=== PATIENT | female | born 1990 | race Caucasian/White ===

== ENCOUNTER 2016-10-20 11:24 | Emergency (ER) | payer OTHER ==
[~2016-10-20] VITALS: Ht 162.6 cm; Wt 60.0 kg
[2016-10-20 11:28] VITALS: Ht 162.6 cm; Wt 60.0 kg
[2016-10-20 12:55] LABS: ADD UMIC NO; URINE BILIRUBIN (Dip) NEGATIVE (NEGATIVE); URINE BLOOD (Dip) NEGATIVE (NEGATIVE); URINE COLOR LT. YELLOW (YELLOW); URINE GLUCOSE (Dip) NEGATIVE (NEGATIVE); URINE KETONES (Dip) NEGATIVE (NEGATIVE); URINE LEUKOCYTE ESTERASE (Dip) NEGATIVE (NEGATIVE); URINE NITRITE (Dip) NEGATIVE (NEGATIVE); URINE TOTAL PROTEIN (Dip) NEGATIVE (NEGATIVE); URINE UROBILINOGEN (Dip) 0.2 E.U./dL (0.1-1.0)
[2016-10-20 12:59] LABS: BASOPHILS % 0.5 % (0.0-2.0); EOSINOPHILS # 0.1 10^3/ul (0.0-0.5); EOSINOPHILS % 0.7 % (0.0-7.0); HEMATOCRIT 41.3 % (37.0-47.0); HEMOGLOBIN 14.1 g/dl (12.0-16.0); LYMPHOCYTES # 2.1 10^3/ul (0.8-2.9); LYMPHOCYTES % 23.2 % (15.0-51.0); MEAN CORPUSCULAR HEMOGLOBIN 29.8 pg (29.0-33.0); MEAN CORPUSCULAR VOLUME 87.5 fl (82.0-101.0); MONOCYTE # 0.7 10^3/ul (0.3-0.9); MONOCYTES % 7.9 % (0.0-11.0); NEUTROPHIL # 6.2 10^3/ul (1.6-7.5); NEUTROPHILS % 67.7 % (39.0-77.0); PLATELET COUNT 187 10^3/UL (140-440); RED BLOOD COUNT 4.72 10^6/ul (4.20-5.40); RED CELL DISTRIBUTION WIDTH 13.3 % (11.5-14.5); UNCORRECTED WBC 9.1 10^3/ul (4.8-10.8); WHITE BLOOD COUNT 9.1 10^3/ul (4.8-10.8)
[2016-10-20 13:09] LABS: CONDITION 1
--- NOTE | 2016-10-20 13:15 | RADRPT ---
AMENDMENT: 10/20/2016 3:01:35 PM Thad Whitfield Md IUD seen in an abnormal location. The IUD appears to be transverse in orientation within the lower uterine segment and or cervix region. In addition, the IUD appears to be perforated into the myometr ium of the uterus. Surgical consultation is advised. PROCEDURE: US OB. CLINICAL INDICATION: Vaginal bleeding in a female. TECHNIQUE: Transabdominal and transvaginal views of the pelvis are available for review. COMPARISON: No. FINDINGS: A gestational sac is identified measuring 1.1 x 1 foot fibers 0.8 cm. The sac diameter is 1.2 cm wh ich calculates out to 5 weeks 5 days. A yolk sac is noted. No ovarian or adnexal mass lesion is seen. The ovaries are normal and abnormal blood flow. There is no free fluid. IMPRESSION: 1. Single gestational sac is identified of 5 weeks 5 days. Since no pole is identified, follo w-up imaging is recommended to ensure that this is a viable . When no IUP is demonstrated, correlation with serial beta HCG is recommended. With a quantitative beta HCG >2000, the differential diagnosis includes spontaneous or ecto pic . Therefore, clinical follow-up is recommended including correlation with serial quant itative beta HCG levels and repeat sonogram with rising levels and/or/or localized or persistent adonay n. With quantitative beta HCG < 2000, the differential diagnosis includes early normal IVP or spontaneo us or ectopic . Therefore, clinical follow-up is recommended including correlatio n with serial quantitative beta HCG levels and arising levels and / or persistent pain. 2. No abnormal adnexal mass or free fluid is noted. RPTAT:AAJJ .Thad Whitfield MD, Date Time Electronically viewed and signed by .Thad Whitfield MD, MD on 10/20/2016 15:01 .B/
--- NOTE | 2016-10-20 14:38 | ERD ---
ER Documentation Chief Complaint Date/Time DATE: 10/20/16 TIME: 14:35 Chief Complaint pelvic pain,5 weeks (KOBY DAY PA-C) HPI Patient is a 26-year-old female who is who presents to the ED with bilateral pelvic pain. She states that her last normal menstrual period was . Denies vaginal bleeding. Patient states that she does not want her and is planning on having an . She states that her second child had problems when she was born and does not want this . She states that she has an IUD and was sent here from her primary care for removal of IUD and ultrasound. She states she wants the pill for but has to remove the IUD before her pcp can give her this. Denies fever or chills. Denies urinary symptoms. Denies abdominal pain, nausea, vomiting or diarrhea. Denies leg pain or swelling. Denies chest pain, cough, shortness of breath or difficulty breathing. No other complaints. Denies history of STDS. (KOBY DAY PA-C) ROS All systems reviewed and are negative except as per history of present illness. (KOBY DAY PA-C) Medications Home Meds Active Scripts Doxycycline Hyclate* (Doxycycline Hyclate*) 100 Mg Tablet., 100 MG PO BID for 5 Days, #10 TAB Prov:MINDY WALL MD 10/20/16 Allergies Allergies: Coded Allergies: No Known Allergy (Verified , 10/20/16) PMhx/Soc Medical and Surgical Hx: pt denies Medical Hx, pt denies Surgical Hx History of Surgery: No Anesthesia Reaction: Yes (csection) Hx Neurological Disorder: No Hx Respiratory Disorders: No Hx Cardiac Disorders: No Hx Psychiatric Problems: No Hx Miscellaneous Medical Probl: No Hx Alcohol Use: Yes (socially) Hx Substance Use: No Hx Tobacco Use: No Smoking Status: Never smoker (KOBY DAY PA-C) Physical Exam Vitals Vital Signs Date Time Temp Pulse Resp B/P Pulse Ox O2 Delivery O2 Flow Rate FiO2 10/20/16 18:06 98.2 72 18 118/65 98 Room Air 10/20/16 11:28 98.2 95 18 131/65 98 (MINDY WALL MD) Physical Exam GENERAL: Well-developed, well-nourished female. Appears in no acute distress. LUNG: Clear to auscultation bilaterally. No rhonchi, wheezing, rales or coarse breath sounds. HEART: Regular rate and rhythm. No murmurs, rubs or gallops. ABDOMEN: No scars, ecchymosis or rashes noted. Soft, nontender, and nondistended. Positive bowel sounds in all four quadrants. No rebound tenderness , no guarding. (-) McBurneys point tenderness. No CVA tenderness. BACK: No midline tenderness. Extremities: Equal pulses bilaterally. No peripheral clubbing, cyanosis or edema. No unilateral leg swelling. NEUROLOGIC: Alert and oriented. Moving all four extremities. 5/5 strength in all extremities. Normal speech. Steady gait. SKIN: Normal color. Warm and dry. No rashes or lesions. Capillary refill < 2 seconds (KOBY DAY PA-C) Result Diagram: 10/20/16 1235 Results 24 hrs Laboratory Tests Test 10/20/16 12:35 Basophils # 0.010^3/ul Basophils % 0.5% Beta HCG, Quantitative 86154.0mIU/ml Blood Morphology Comment Eosinophils # 0.110^3/ul Eosinophils % 0.7% Hematocrit 41.3% Hemoglobin 14.1g/dl Lymphocytes # 2.110^3/ul Lymphocytes % 23.2% Mean Corpuscular Hemoglobin 29.8pg Mean Corpuscular Hemoglobin Concent 34.0g/dl Mean Corpuscular Volume 87.5fl Mean Platelet Volume 11.0fl Monocytes # 0.710^3/ul Monocytes % 7.9% Neutrophils # 6.210^3/ul Neutrophils % 67.7% Nucleated Red Blood Cells # 0.010^3/ul Nucleated Red Blood Cells % 0.0/100WBC Platelet Count 23366^3/UL Red Blood Count 4.7210^6/ul Red Cell Distribution Width 13.3% Urine Bilirubin NEGATIVE Urine Clarity CLEAR Urine Color LT. YELLOW Urine Glucose NEGATIVE% Urine Hemoglobin NEGATIVE Urine Ketones NEGATIVE Urine Leukocyte Esterase NEGATIVE Urine Nitrite NEGATIVE Urine Specific [place] 1.020 Urine Total Protein NEGATIVE Urine Urobilinogen 0.2 E.U./dL Urine pH 7.0 White Blood Count 9.110^3/ul Current Medications Medications (Trade) Dose Ordered Sig/Teresa Route PRN Reason Start Time Stop Time Status Last Admin Dose Admin Doxycycline Hyclate (Vibramycin) 100 mg BID PO 10/20/16 21:00 10/20/16 20:37 (MINDY WALL MD) Procedures/MDM ER COURSE: I kept the patient and/or family informed of laboratory and diagnostic imaging results throughout the emergency room course. [place] [id number] Radiology Main Line: [phone] DIAGNOSTIC IMAGING REPORT Patient: NARESH STACY : 1990 Age: 26 Sex: F MR #: [id number] DOS: 10/20/16 1222 Ordering MD: KOBY DAY PA-C Location: [facility] Room/Bed: AMENDMENT: 10/20/2016 3:01:35 PM Thad Whitfield Md IUD seen in an abnormal location. The IUD appears to be transverse in orientation within the lower uterine segment and or cervix region. In addition, the IUD appears to be perforated into the myometrium of the uterus. Surgical consultation is advised. PROCEDURE: US OB. CLINICAL INDICATION: Vaginal bleeding in a female. TECHNIQUE: Transabdominal and transvaginal views of the pelvis are available for review. COMPARISON: No. FINDINGS: A gestational sac is identified measuring 1.1 x 1 foot fibers 0.8 cm. The sac diameter is 1.2 cm which calculates out to 5 weeks 5 days. A yolk sac is noted. No ovarian or adnexal mass lesion is seen. The ovaries are normal and abnormal blood flow. There is no free fluid. IMPRESSION: 1. Single gestational sac is identified of 5 weeks 5 days. Since no pole is identified, follow-up imaging is recommended to ensure that this is a viable . When no IUP is demonstrated, correlation with serial beta HCG is recommended. With a quantitative beta HCG >2000, the differential diagnosis includes spontaneous or ectopic . Therefore, clinical follow-up is recommended including correlation with serial quantitative beta HCG levels and repeat sonogram with rising levels and/or/or localized or persistent pain. With quantitative beta HCG < 2000, the differential diagnosis includes early normal IVP or spontaneous or ectopic . Therefore, clinical follow-up is recommended including correlation with serial quantitative beta HCG levels and arising levels and / or persistent pain. 2. No abnormal adnexal mass or free fluid is noted. RPTAT:AAJJ .Thad Whitfield MD, Date Time Electronically viewed and signed by .Thad Whitfield MD, MD on 10/20/2016 15:01 .B/ CC: KOBY DAY PA-C LAB INTERPRETATION: CBC showed no evidence of systemic infection or severe anemia. . UA showed no evidence of leukocytes, nitrites or hematuria. Beta hC.0 Rh: A+ MEDICAL DECISION MAKING: This is a 26-year-old female who is who presents with pelvic pain and removal of IUD. Vital signs were reviewed. Patient is afebrile. Patient is not hypoxic. Patient is not toxic or ill-appearing. Dr. Pop was consulted who came to examine patient at bedside and to remove IUD. Patient will be admitted for IUD removal and D/C. Consent forms were signed by patient and provider. Dr. Pop will be the admitting doctor. Patient is stable at transfer. (KOBY DAY PA-C) Initially the PA saw the patient and consulted gynecology. Gynecology wanted to take the patient to the operating room for removal of her IUD. However her insurance did not believe this was in the emergency and they did not approve admission. They also did not approve transferred to [facility], where the patient's insurance is capitated. Our farm management teacher,Dr. Hardin, stated that this procedure needs to be done within 1 week. She also recommended doxycycline for 5 days. I discussed this with the patient and she is agreeable to the plan. She will follow up with her farm management teacher within the next day. She will return for any worsening symptoms. (MINDY WALL MD) Departure Diagnosis: Primary Impression: Threatened Additional Impression: Encounter for IUD removal Condition: Stable Patient Instructions: Possible Miscarriage (Threatened ) Referrals: NO PRIMARY,CARE PHYSICIAN Additional Instructions: Call your primary care doctor TOMORROW for an appointment during the next 1-2 days.See the doctor sooner or return here if your condition worsens before your appointment time. KOBY DAY PA-C Oct 20, 2016 14:38 MINDY WALL MD Oct 20, 2016 20:54
--- NOTE | 2016-10-20 20:22 | PD.PPDC ---
[employer] Discharge Instruction Provider Information Physician Information Lázaro Lundberg Diagnosis Final Diagnosis: Retained and misplaced IUD with early Condition Patient Condition: Good Diet Diet: Resume Regular Diet Activity/Restrictions Activity: Normal Activity Restrictions: No Exercising Nothing in the Vagina No [place] No Tampons, douche Follow-up Follow-up with Physician: 2, Day/Days Return to clinic for INSURANCE CLAIMS REPRESENTATIVE Instructions: Fever greater than 101 Chills Worsening abdominal pain Excessive Vaginal Bleeding More than 2 pads per hour Unable to tolerate diet LÁZARO LUNDBERG MD Oct 20, 2016 20:22
[2016-10-20] MEDS ORDERED: DOXY100T20 PO (20:52)
--- NOTE | 2016-10-20 20:55 | CONS ---
Date/Time of Note Date/Time of Note DATE: 10/20/16 TIME: 20:23 Assessment/Plan Assessment/Plan Chief Complaint/Hosp Course Retained IUD Early IUP undesired Attempted to remove the IUD at ED , could not been able to do due to lodging and entrapment in the lower uterine segment/ cervix. Patient desires termination. Discussed about increased risk for infection, SAB and PTL with retained IUD and . Patient strongly desires termination Consider removal in the OR as well as D&C. Risks for the procedure including risk for infection. uterine perforation, inability to remove or breaking of IUD , risk for laparatomy and risk for bleeding and blood transfusion discussed in detail Patient consented for removal in OR. how ever I was called by ED charge nurse that the patient has been capped with [employer] and due to her insurnace can not proeceed with the procedure at this facility. Requested by her insurance to be referred to her [facility] for termination and removal of IUD Recommended to take antibiotics due to recent instrumention as well as retained IUD I have discussed the risk of teratogenicity with this medication, if patient plans to continue Strongly desires termination SAB precaution given Advised to RT ED in case of fever, chills, abnormal vaginal discharge or any other concerns. Patient verbalized understanding Problems: Consultation Date/Type/Reason Admit Date/Time Date of Consultation: Oct 20, 2016 Type of Consultation: [employer] Reason for Consultation Lower abdominal pain, early and retained and displaced IUD Hx of Present Illness 26 years old female with early new episode of and lower abdominal pain, was seen today at her PCP office due to pain and postiive test. She was noted to be with IUD ( paraGard). [facility]. Patient has been using ParaGard IUD for the past 8 years. used to have regular cycles with IUD. missed her recent cycle. had a positive test. was unplanned and undesired and requests termination. She had a pelivc ultrasound at ED that showed evidence of misplaced IUD and entrapment in the lower uterine segment / cervix with a 5 + weeks gestational sac without echo and presence of Yolk sac. there is no free fluid in pelvis or adnexal mass. Patient denies any fever, chills, abnormal vaginal bleeding or discharge. Constitutional: no complaints Eyes: no complaints ENT: no complaints Respiratory: no complaints Cardiovascular: no complaints Gastrointestinal: no complaints Genitourinary: no complaints Musculoskeletal: no complaints Skin: no complaints Neurologic: no complaints Endocrine: no complaints Lymphatic: no complaints Psychological: no complaints Immunologic: no complaints Past Medical History Medical History: no pertinent history Past Surgical History History of section x 1 Family History Significant Family History: no pertinent family hx Social History Alcohol Use: occasionally Smoking Status: Never smoker Drug Use: none Other Social History works in [employer] OBGYN History: x 1 section x 1 for intestinal abnormality ? gastroschisis? , had surgery immediately after and at 2 years of age. Denies any prior history of abnormal pap or ovarian cyat or fibroid Cycles were regular. every 28 days with normal flow Denies any prior history of STD or PID Using IUD paraGard placed about 8 years ago after her last delivery. New episode of . 5 weeks and 1 day by LMP Exam/Review of Systems Vital Signs Vitals Vital Signs Date Time Temp Pulse Resp B/P Pulse Ox O2 Delivery O2 Flow Rate FiO2 10/20/16 18:06 98.2 72 18 118/65 98 Room Air Exam Constitutional: alert, oriented, well developed Psych: nl mood/affect, no complaints Head: atraumatic, normocephalic Eyes: EOMI, nl conjunctiva, nl lids ENMT: nl external ears & nose, nl lips & teeth, nl nasal mucosa & septum Neck: jvd, non-tender, supple Respiratory: clear to auscultation, normal air movement Cardiovascular: nl pulses, regular rate and rhythm Gastrointestinal: nl liver, spleen, soft, tender (mildly in both lower abdomen. no rebound tenderness, no guarding, no rigidity. ) Genitourinary - Female: nl adnexae, other (SSE: cervix looks normal. IUD string seen at the external cervical os about 1 cm from the os. No abnormal vaginal discharge noted. No fullness or tenderness in adnexa. No uterine tenderness, After discussion about the risks and benefits regarding removal of IUD including risk for SAB, and risk of infection in case of retained IUD. Patient requested removal. [place] desires termination. Attempted to remove the IUD after garsping of the string with bandage forceps, difficutly of removing noted with resistence due to wedged IUD, manuela in the cervix area. after attempting for removal. the strings came off. IUD palpable in the cervix. could not been able to remove IUD) Musculoskeletal: nl extremities to inspection, nl gait and stance Extremities: normal pulses Neurological: TRADER FIXED INCOME II-XII intact, nl mental status, nl speech, nl strength Skin: nl turgor, rash or lesions Results Result Diagram: 10/20/16 1235 Results 24 hrs Laboratory Tests Test 10/20/16 12:35 Basophils # 0.0 Basophils % 0.5 Beta HCG, Quantitative 31979.0 Blood Morphology Comment Eosinophils # 0.1 Eosinophils % 0.7 Hematocrit 41.3 Hemoglobin 14.1 Lymphocytes # 2.1 Lymphocytes % 23.2 Mean Corpuscular Hemoglobin 29.8 Mean Corpuscular Hemoglobin Concent 34.0 Mean Corpuscular Volume 87.5 Mean Platelet Volume 11.0 H Monocytes # 0.7 Monocytes % 7.9 Neutrophils # 6.2 Neutrophils % 67.7 Nucleated Red Blood Cells # 0.0 Nucleated Red Blood Cells % 0.0 Platelet Count 187 Red Blood Count 4.72 Red Cell Distribution Width 13.3 Urine Bilirubin NEGATIVE Urine Clarity CLEAR Urine Color LT. YELLOW Urine Glucose NEGATIVE Urine Hemoglobin NEGATIVE Urine Ketones NEGATIVE Urine Leukocyte Esterase NEGATIVE Urine Nitrite NEGATIVE Urine Specific [place] 1.020 Urine Total Protein NEGATIVE Urine Urobilinogen 0.2 E.U./dL Urine pH 7.0 White Blood Count 9.1 Medications Medications Current Medications Doxycycline Hyclate (Vibramycin) 100 mg BID PO ; Start 10/20/16 at 21:00; Status UNV Procedures Procedures AMENDMENT: 10/20/2016 3:01:35 PM Thad Whitfield Md IUD seen in an abnormal location. The IUD appears to be transverse in orientation within the lower uterine segment and or cervix region. In addition, the IUD appears to be perforated into the myometrium of the uterus. Surgical consultation is advised. PROCEDURE: US OB. CLINICAL INDICATION: Vaginal bleeding in a female. TECHNIQUE: Transabdominal and transvaginal views of the pelvis are available for review. COMPARISON: No. FINDINGS: A gestational sac is identified measuring 1.1 x 1 foot fibers 0.8 cm. The sac diameter is 1.2 cm which calculates out to 5 weeks 5 days. A yolk sac is noted. No ovarian or adnexal mass lesion is seen. The ovaries are normal and abnormal blood flow. There is no free fluid. IMPRESSION: 1. Single gestational sac is identified of 5 weeks 5 days. Since no pole is identified, follow-up imaging is recommended to ensure that this is a viable . When no IUP is demonstrated, correlation with serial beta HCG is recommended. With a quantitative beta HCG >2000, the differential diagnosis includes spontaneous or ectopic . Therefore, clinical follow-up is recommended including correlation with serial quantitative beta HCG levels and repeat sonogram with rising levels and/or/or localized or persistent pain. With quantitative beta HCG < 2000, the differential diagnosis includes early normal IVP or spontaneous or ectopic . Therefore, clinical follow-up is recommended including correlation with serial quantitative beta HCG levels and arising levels and / or persistent pain. 2. No abnormal adnexal mass or free fluid is noted. RPTAT:AAJJ .Thad Whitfield MD, MD Date Time Electronically viewed and signed by .Thad Whitfield MD, MD on 10/20/2016 15:01 .B/ CC: KOBY DAY PA-C, MARYAM MD Oct 20, 2016 20:33
[2016-10-20] MEDS ORDERED: DOXYCYCLINE 100 MG TAB PO SCH (21:00)
[2016-10-20 21:05] VITALS: BP 107/72; PULSE 70; RESP 18; TEMP 98.3
== END 2016-10-20 21:06 | disposition home or self-care (01) ==
LOC: FTE 11:24 → E/R 21:06
DX: O20.0 Threatened abortion (principal); R10.2 Pelvic and perineal pain; Z30.432 Encounter for removal of intrauterine contraceptive device
CPT/HCPCS: 36415; 76801; 76817; 81003; 84702; 85025; 86900; 86901; Z7502; Z7610

== ENCOUNTER 2016-10-22 10:24 | Inpatient (IN) | payer OTHER ==
[~2016-10-22] VITALS: Wt 69.0 kg
[~2016-10-22 10:24] MED LIST: DOXY100T20 PO
--- NOTE | 2016-10-22 15:21 | ERD ---
ER Documentation Chief Complaint Date/Time DATE: 10/22/16 Chief Complaint Pelvic pain, early , retained and misplaced IUD sent for IUD removal HPI The patient is a 26-year-old female, A0 with new episode of , who presents to the Emergency Department with complaint of pelvic pain, and retained IUD. The patient reports that she has been using the ParaGard IUD for the past 8 years, and missed her most recent menstrual cycle. She was seen in an outpatient clinic, at which time she was noted to have a positive test. Knowing that the patient has an IUD, they attempted removal, but the strings and IUD could not be found, and therefore, on 10/20/2016 the patient was referred to the ED to evaluate for misplaced IUD and removal. The patient states that this was unplanned, is undesired, and she is requesting termination of the . She was evaluated in the ED on 2016, where ultrasound imaging revealed evidence of misplaced IUD with entrapment in the lower uterine segment and/or cervix region with perforation into the myometrium of the uterus, and a single gestational sac of 5 weeks 5 days, though with no pole identified. Beta hCG 21,989. The patient was seen by Dr. Pop, AIRPORT ENGINEER on-call at the time, who determined the patient to have retained and misplaced IUD with early , and planned to admit the patient for removal in the OR as well as D&C. Unfortunately, at the time, due to the patient's insurance status, she could not be admitted at this facility, and the patient was therefore discharged home and advised to follow up with OB/ ECONOMIC HISTORY TEACHER [facility] for termination and IUD removal. The patient called her insurance company yesterday, asking where she was to go, and was advised that she will be given authorization for admission to [facility] for IUD removal and any associated procedures. Therefore, she presents today. She reports continued pelvic pain. Denies new vaginal discharge. Denies fevers, chills, nausea, vomiting, back pain. ROS All systems reviewed and are negative except as per history of present illness. Medications Home Meds Active Scripts Doxycycline Hyclate* (Doxycycline Hyclate*) 100 Mg Tablet., 100 MG PO BID for 5 Days, #10 TAB Prov:MINDY WALL MD 10/20/16 Allergies Allergies: Coded Allergies: No Known Allergy (Verified , 10/20/16) PMhx/Soc History of Surgery: No Anesthesia Reaction: No Hx Neurological Disorder: No Hx Respiratory Disorders: No Hx Cardiac Disorders: No Hx Psychiatric Problems: No Hx Miscellaneous Medical Probl: No Hx Alcohol Use: No Hx Substance Use: No Hx Tobacco Use: No Smoking Status: Never smoker Physical Exam Vitals Vital Signs Date Time Temp Pulse Resp B/P Pulse Ox O2 Delivery O2 Flow Rate FiO2 10/22/16 10:30 98.0 82 18 114/73 99 Physical Exam GENERAL: Well-developed, well-nourished, female, in no acute distress HEENT: Head is normocephalic, atraumatic. No scleral pallor or icterus. Conjunctiva pink. Moist mucous membranes. NECK: Supple. RESPIRATORY: Lungs are clear to auscultation bilaterally. Equal breath sounds. Normal expiratory effort. CARDIOVASCULAR: Regular rate and rhythm. S1 and S2 normal. No murmurs. GASTROINTESTINAL: Abdomen is soft, non-tender, and non-distended. No guarding, no rebound tenderness. Normal bowel sounds. No gross peritonitis. FLANK: No CVA tenderness. BACK: No midline tenderness. EXTREMITIES: No clubbing, cyanosis, or edema. Normal skin perfusion. Moving all extremities. Muscle tone is normal. No focal swelling or erythema. NEUROLOGIC: The patient is alert, awake, and oriented x 3. No focal neurologic deficits. INTEGUMENT: Skin is intact. Warm and dry. PSYCHIATRIC: Cooperative; appropriate. Result Diagram: 10/23/16 1120 10/22/16 1520 Results 24 hrs Laboratory Tests Test 10/22/16 15:20 Activated Partial Thromboplast Time 26.4Sec Anion Gap 17 Basophils # 0.010^3/ul Basophils % 0.4% Beta HCG, Quantitative 48947.0mIU/ml Blood Urea Nitrogen 13mg/dl Calcium Level 8.8mg/dl Carbon Dioxide Level 22mmol/L Chloride Level 104mmol/L Creatinine 0.54mg/dl Eosinophils # 0.110^3/ul Eosinophils % 0.7% Glucose Level 82mg/dl Hematocrit 39.5% Hemoglobin 13.5g/dl INR International Normalized Ratio 0.98 Lymphocytes # 2.210^3/ul Lymphocytes % 26.1% Mean Corpuscular Hemoglobin 29.7pg Mean Corpuscular Hemoglobin Concent 34.2g/dl Mean Corpuscular Volume 86.8fl Mean Platelet Volume 12.2fl Monocytes # 0.510^3/ul Monocytes % 5.5% Neutrophils # 5.610^3/ul Neutrophils % 66.9% Nucleated Red Blood Cells # 0.010^3/ul Nucleated Red Blood Cells % 0.0/100WBC Platelet Count 46359^3/UL Potassium Level 3.8mmol/L Prothrombin Time 13.0Sec Prothrombin Time Ratio 1.0 Red Blood Count 4.5510^6/ul Red Cell Distribution Width 13.0% Sodium Level 139mmol/L Urine Bilirubin NEGATIVE Urine Clarity CLEAR Urine Color LT. YELLOW Urine Glucose NEGATIVE% Urine Hemoglobin NEGATIVE Urine Ketones 15 Urine Leukocyte Esterase NEGATIVE Urine Nitrite NEGATIVE Urine Specific [place] >=1.030 Urine Total Protein NEGATIVE Urine Urobilinogen 0.2 E.U./dL Urine pH 5.5 White Blood Count 8.410^3/ul Procedures/MDM The patient's case was reviewed and discussed with Dr. Jasso, Dr. Walsh, Dr. Bellamy and Dr. Joshi, who agree with the plan of care including labs, treatment and advanced imaging as appropriate. DIAGNOSTIC TESTS AND INTERPRETATION: PROCEDURE: US OB. CLINICAL INDICATION: Pelvic pain, viability TECHNIQUE: Transabdominal and transvaginal views of the pelvis are available for review. COMPARISON: 10/20/2016 FINDINGS: The IUD is again noted to be in a transverse abnormal location in the lower uterine segment. This is not significantly changed. There is a single intrauterine gestation with gestational sac measuring 1.6 cm , corresponding to a gestational age of 6 weeks and 2 days. No pole or yolk sac is yet visualized. The right ovary measures 3.8 x 2.1 cm. A questionable isoechoic mass is seen adjacent to the right ovary, measuring 2.8 x 1.4 cm. The left ovary measures 2.1 x 1.7 x 1.4 cm. There is no free fluid. IMPRESSION: Possible intrauterine with an estimated gestational age of 6 weeks and 2 days, based on ultrasound measurements. No pole or yolk sac is yet visualized. Questionable isoechoic mass adjacent to the right ovary versus normal ovarian tissue. An ectopic cannot be completely excluded. Follow-up ultrasound and HCG levels is recommended. IUD is again noted and abnormal transverse location in the lower uterine segment. .Dutch Lyn MD, MD Date Time Electronically viewed and signed by .Dutch Lyn MD, on 10/22/2016 16: 27 CONSULTATION: Discussed case with Dr. Carvalho, who evaluated the patient bedside. Given high concern for possible ectopic , the patient will be admitted and will go to the OR with Dr. Carvalho. She will be consented for D&C, suction, removal of IUD, laparoscopy, removal of ectopic , possible salpingectomy, possible laparotomy. MEDICAL DECISION MAKING: This is a 26-year-old female, A0, presenting to the Emergency Department with pelvic pain. Patient was initially evaluated 2 days prior, and was noted to have an "early " and " retained and misplaced IUD". Initially, the plan was to admit the patient, to perform IUD retrieval, and D&C, given that this was not a desired . However, due to insurance complications, the patient was discharged home instead and advised to follow up with her own AIRPORT ENGINEER. The patient returned today, by recommendation of her insurance company, as they have provided authorization for admission to this hospital. Upon presentation, the patient continues to experience pelvic pain. She has not had any bleeding, no new vaginal discharge, no flank pain, no dysuria, no hematuria, no urinary frequency /urgency/hesitancy or urinary retention. She had no significant abnormalities noted on physical examination, and was hemodynamically stable. Laboratory analysis and ultrasound imaging were performed. The patient's beta hCG increased to 36,662 over a 48-hour period, from previous beta hCG of 21,989. Ultrasound imaging performed revealed a possible intrauterine with an estimated gestational age of 6 weeks and 2 days, but with no pole or yolk sac visualized. Additionally, there is a questionable isoechoic mass adjacent to the right ovary versus normal ovarian tissue, which is concerning for a possible ectopic . The patient's IUD was once against visualized in abnormal transverse location in the lower uterine segment. The patient's case was discussed with AIRPORT ENGINEER specialist on-call, Dr. Carvalho, who evaluated the patient bedside, and recommends admission. He will take the patient to the OR for D&C, suction, removal of IUD, laparoscopy, removal of ectopic , possible salpingectomy, and possible laparotomy. The patient will be admitted to med/surg in stable condition. Departure Diagnosis: Primary Impression: Retained intrauterine device (IUD) during in first t... Additional Impressions: Ectopic Location of ectopic : unspecified location Intrauterine status: unspecified Qualified Code: O00.90 - Ectopic , unspecified location, unspecified whether intrauterine present Pelvic pain complicating Condition: Stable BRANDON BARNES PA-C Oct 22, 2016 15:19
[2016-10-22 15:27] LABS: ADD SCAN DIFF NO
[2016-10-22 15:30] LABS: BASOPHILS % 0.4 % (0.0-2.0); EOSINOPHILS # 0.1 10^3/ul (0.0-0.5); EOSINOPHILS % 0.7 % (0.0-7.0); HEMATOCRIT 39.5 % (37.0-47.0); HEMOGLOBIN 13.5 g/dl (12.0-16.0); LYMPHOCYTES # 2.2 10^3/ul (0.8-2.9); LYMPHOCYTES % 26.1 % (15.0-51.0); MEAN CORPUSCULAR HEMOGLOBIN 29.7 pg (29.0-33.0); MEAN CORPUSCULAR HGB CONC 34.2 g/dl (32.0-37.0); MEAN CORPUSCULAR VOLUME 86.8 fl (82.0-101.0); MEAN PLATELET VOLUME 12.2 fl (7.4-10.4); MONOCYTE # 0.5 10^3/ul (0.3-0.9); MONOCYTES % 5.5 % (0.0-11.0); NEUTROPHIL # 5.6 10^3/ul (1.6-7.5); NEUTROPHILS % 66.9 % (39.0-77.0); PLATELET COUNT 208 10^3/UL (140-415); RED BLOOD COUNT 4.55 10^6/ul (4.20-5.40); WHITE BLOOD COUNT 8.4 10^3/ul (4.8-10.8)
[2016-10-22 15:34] LABS: INR 0.98
[2016-10-22 15:35] LABS: PARTIAL THROMBOPLASTIN TIME 26.4 Sec (25.0-35.0)
[2016-10-22 15:36] LABS: POTASSIUM 3.8 mmol/L (3.5-5.1)
[2016-10-22 15:38] LABS: ADD UMIC NO; CREATININE 0.54 mg/dl (0.44-1.00); URINE BILIRUBIN (Dip) NEGATIVE (NEGATIVE); URINE BLOOD (Dip) NEGATIVE (NEGATIVE); URINE COLOR LT. YELLOW (YELLOW); URINE GLUCOSE (Dip) NEGATIVE (NEGATIVE); URINE KETONES (Dip) 15 (NEGATIVE); URINE LEUKOCYTE ESTERASE (Dip) NEGATIVE (NEGATIVE); URINE NITRITE (Dip) NEGATIVE (NEGATIVE); URINE TOTAL PROTEIN (Dip) NEGATIVE (NEGATIVE); URINE UROBILINOGEN (Dip) 0.2 E.U./dL (0.1-1.0)
[2016-10-22 15:39] LABS: CALCIUM 8.8 mg/dl (8.4-10.2)
--- NOTE | 2016-10-22 16:27 | RADRPT ---
PROCEDURE: US OB. CLINICAL INDICATION: Pelvic pain, viability TECHNIQUE: Transabdominal and transvaginal views of the pelvis are available for review. COMPARISON: 10/20/2016 FINDINGS: The IUD is again noted to be in a transverse abnormal location in the lower uterine segment. This i s not significantly changed. There is a single intrauterine gestation with gestational sac measuring 1.6 cm, corresponding to a gestational age of 6 weeks and 2 days. No pole or yolk sac is yet visualized. The right ovary measures 3.8 x 2.1 cm. A questionable isoechoic mass is seen adjacent to the right ovary, measuring 2.8 x 1.4 cm. The left ovary measures 2.1 x 1.7 x 1.4 cm. There is no free fluid. RPTAT: AA IMPRESSION: Possible intrauterine with an estimated gestational age of 6 weeks and 2 days, based on ul trasound measurements. No pole or yolk sac is yet visualized. Questionable isoechoic mass adjacent to the right ovary versus normal ovarian tissue. An ectopic pr egnancy cannot be completely excluded. Follow-up ultrasound and HCG levels is recommended. IUD is again noted and abnormal transverse location in the lower uterine segment. .Dutch Lyn MD, MD Date Time Electronically viewed and signed by .Dutch Lyn MD, on 10/22/2016 16:27 .S/
[2016-10-22 17:23] VITALS: TEMP 98.7
[2016-10-22] MEDS ORDERED: BUPIVACAINE 0.25% (MPF) 10 ML 10 ML VIAL ONE (20:48)
[2016-10-22] MEDS ORDERED: PROPOFOL 20 ML ONE (20:52)
[2016-10-22] MEDS ORDERED: LIDOCAINE 2% (SDV) 5 ML INJ ONE (20:52)
[2016-10-22] MEDS ORDERED: SUCCINYLCHOLINE CHLORIDE 100 MG/5 ML SYG IV ONE (20:52)
[2016-10-22] MEDS ORDERED: GLYCOPYRROLATE 0.4 MG INJ ONE ×2 (20:52→21:09)
[2016-10-22] MEDS ORDERED: NEOSTIGMINE 3 MG/3 ML SYRINGE ONE ×2 (20:52→21:09)
[2016-10-22] MEDS ORDERED: ROCURONIUM 50 MG INJ ONE (20:52)
[2016-10-22] MEDS ORDERED: MEPERIDINE 100 MG INJ ONE (20:53)
[2016-10-22] MEDS ORDERED: ONDANSETRON 4 MG INJ IV PRN (21:00)
[2016-10-22] MEDS ORDERED: hydrALAzine 20 MG INJ IV PRN (21:00)
[2016-10-22] MEDS ORDERED: EPHEDrine SULFATE 50 MG/5 ML SYG IV PRN (21:00)
[2016-10-22] MEDS ORDERED: METOCLOPRAMIDE 10 MG INJ IV PRN (21:00)
[2016-10-22] MEDS ORDERED: FENTAnyl 50 MCG/ML VIAL IV PRN ×2 (21:00)
[2016-10-22] MEDS ORDERED: DIPHENHYDRAMINE 50 MG INJ IV PRN (21:00)
[2016-10-22] MEDS ORDERED: LABETALOL HCL 20MG INJ IV PRN (21:00)
[2016-10-22] MEDS ORDERED: HYDROmorphONE (0.2 MG/ML) 10ML SYG IV PRN ×2 (21:00)
[2016-10-22] MEDS ORDERED: MIDAZOLAM 1 MG/ML 2 ML INJ IV PRN (21:00)
[2016-10-22] MEDS ORDERED: morphine (1 MG/ML) 10ML SYRINGE IV PRN ×2 (21:00)
[2016-10-22] MEDS ORDERED: MEPERIDINE 25 MG INJ IV PRN (21:00)
[2016-10-22] MEDS ORDERED: CEFAZOLIN 1 GM INJ ONE (21:08)
[2016-10-22] MEDS ORDERED: METOCLOPRAMIDE 10 MG INJ ONE (21:09)
[2016-10-22] MEDS ORDERED: ONDANSETRON 4 MG INJ ONE (21:09)
[2016-10-22 23:07] VITALS: BP 114/65; PULSE 86; RESP 18
[2016-10-22 23:09] VITALS: BP 107/62; PULSE 88; RESP 18
[2016-10-22 23:14] VITALS: BP 99/58; PULSE 86; RESP 18
[2016-10-22 23:19] VITALS: BP 102/58; PULSE 86; RESP 18
[2016-10-22 23:24] VITALS: BP 100/55; PULSE 82; RESP 18
--- NOTE | 2016-10-23 01:34 | OPR ---
Date/Time of Note Date/Time of Note DATE: 10/23/16 TIME: 01:07 Operative Report Free Text/Dictation 10/22/2016 Procedure: D&C&Scution,Hysteroscopy.Removal of IUD Laparascopy Preop Dx Suspected Ectopic vs missed .Lost IUD Attending Surgeon:MD Deven Anesthesiologist: EBL <5-10 cc Complications None Patient was taken to OR where General anesthesia was found to be adequate.Patient was placed in dorsal lithotomy position.After prep and Drape,A weighted speculum was placed inside vaginal vault.Ant Lip of cervix was grasped using a tenaculum.Cervix was dilated by prat dilatorsA polyp grasper was inserted and IUD was grasped and removed.The Myers of the IUD is missing and The shaft and base is intact,Suction tip size 7 was inserted and intrauterine cavity was suctioned and product of contraception was sent to pathology Then sharp currette of endometrial cavity was done ,Specimen sent to pathology.Hummi inserted in uterine cavity and then attention was turned to abdominal field that 1 cm incision was made underneath the umbilicus and first trocar was inserted inside the abdominal cavity and under direct visualization of camera.Intrabdominal cavity was filled up using 4 liters of co2 then 2nd and 3rd trocar was inserted in the right and left side of the umbilical incison and 8cm from the first trocar.They inserted under direct visualization of cameras.moderate amount of adhesions was noticed.both tubes and ovaries were visulized.Bilateral hydrosalpinx was noticed .No sign of ectopic was seen .trocars were left in place and attention was turned to vaginal field and diagnostic hysteoscopy done .No remnants of IUD seen. Hysteroscope was removed.Intraabdominal cavity was filled with co2 .Suction and irrigation of abdominal cavity done.A small perforation of uterus noticed,not bleeding a piece of surgicel was placed on top of that..By pressing the blunt probe on uteine wall blanching the external uterine wall,it seems that iud myers is being felt underneath of uterine serosa and embedded in myometrium. trocars and instruments were removed under direct visualization of camera.hemostasis achieved.incisions were closed by 0-3 monocryl.dermoband was placed on top of the incisions.The patient tolerated the procedure well and was transferred to recovery room in stable condition Procedure Date: Oct 22, 2016 Preoperative Diagnosis suspected Ectopic vs missed lost IUD Postoperative Diagnosis Missed ,bilareal hydrosalpinx embedded iud myers inmyometrium Operation Performed D&C&Scution,Hysteroscopy.Removal of IUD Laparascopy Surgeon: KARIN STEPHENSON M.D. Anesthesia: general Anesthesiologist: STEPHANIE SOUSA MD Estimated Blood Loss: 0 - 10 ml's Specimens poc,iud Complications: None Pt Condition Post Procedure: stable Disposition: PACU Procedure Description 10/22/2016 Procedure: D&C&Scution,Hysteroscopy.Removal of IUD Laparascopy Preop Dx Suspected Ectopic vs missed .Lost IUD Attending Surgeon:MD Deven Anesthesiologist: EBL <5-10 cc Complications None Patient was taken to OR where General anesthesia was found to be adequate.Patient was placed in dorsal lithotomy position.After prep and Drape,A weighted speculum was placed inside vaginal vault.Ant Lip of cervix was grasped using a tenaculum.Cervix was dilated by prat dilatorsA polyp grasper was inserted and IUD was grasped and removed.The Myers of the IUD is missing and The shaft and base is intact,Suction tip size 7 was inserted and intrauterine cavity was suctioned and product of contraception was sent to pathology Then sharp currette of endometrial cavity was done ,Specimen sent to pathology.Hummi inserted in uterine cavity and then attention was turned to abdominal field that 1 cm incision was made underneath the umbilicus and first trocar was inserted inside the abdominal cavity and under direct visualization of camera.Intrabdominal cavity was filled up using 4 liters of co2 then 2nd and 3rd trocar was inserted in the right and left side of the umbilical incison and 8cm from the first trocar.They inserted under direct visualization of cameras.moderate amount of adhesions was noticed.both tubes and ovaries were visulized.Bilateral hydrosalpinx was noticed .No sign of ectopic was seen .trocars were left in place and attention was turned to vaginal field and diagnostic hysteoscopy done .No remnants of IUD seen. Hysteroscope was removed.Intraabdominal cavity was filled with co2 .Suction and irrigation of abdominal cavity done.A small perforation of uterus noticed,not bleeding a piece of surgicel was placed on top of that..By pressing the blunt probe on uteine wall blanching the external uterine wall,it seems that iud myers is being felt underneath of uterine serosa and embedded in myometrium. trocars and instruments were removed under direct visualization of camera.hemostasis achieved.incisions were closed by 0-3 monocryl.dermoband was placed on top of the incisions.The patient tolerated the procedure well and was transferred to recovery room in stable condition KARIN STEPHENSON M.D. Oct 23, 2016 01:30
[2016-10-23 07:18] VITALS: BP 95/51; RESP 15
[2016-10-23 11:39] LABS: BASOPHILS % 0.2 % (0.0-2.0); EOSINOPHILS % 0.4 % (0.0-7.0); HEMATOCRIT 32.6 % (37.0-47.0); HEMOGLOBIN 11.3 g/dl (12.0-16.0); LYMPHOCYTES % 26.1 % (15.0-51.0); MEAN CORPUSCULAR HEMOGLOBIN 30.1 pg (29.0-33.0); MEAN CORPUSCULAR HGB CONC 34.6 g/dl (32.0-37.0); MEAN PLATELET VOLUME 10.6 fl (7.4-10.4); MONOCYTE # 0.6 10^3/ul (0.3-0.9); MONOCYTES % 8.3 % (0.0-11.0); PLATELET COUNT 159 10^3/UL (140-440); RED BLOOD COUNT 3.75 10^6/ul (4.20-5.40); RED CELL DISTRIBUTION WIDTH 12.9 % (11.5-14.5); UNCORRECTED WBC 7.7 10^3/ul (4.8-10.8); WHITE BLOOD COUNT 7.7 10^3/ul (4.8-10.8)
[2016-10-23 11:47] LABS: CONDITION 1
[2016-10-23] MEDS ORDERED: OXYCODONE/ACETAMINOPHEN (5/325) TAB PO PRN ×3 (12:00→19:30)
[2016-10-23] MEDS: IBUPROFEN 800 MG TAB PO SCH ×2 (12:07→17:23)
--- NOTE | 2016-10-23 12:53 | HP ---
DATE OF ADMISSION: 10/22/2016 PREOPERATIVE HISTORY OF PHYSICAL: A 26-year-old, admitted through the emergency room with abdominal pain and cramps. The patient has a history of previous visits to emergency room and there was a gregory led attempt of removal of the IUD, that the strings were removed. The patient does not desire this . Given the fact that there was no yolk sac, a pole was seen by ultrasound, the beta hCG is rising and there are new findings with the ultrasound close to the ovaries, the patient was a dmitted with a suspected diagnosis of ectopic . PAST MEDICAL HISTORY: Denies. PAST SURGICAL HISTORY: Previous C-sections. ALLERGIES: NKDA. PHYSICAL EXAMINATION: VITAL SIGNS: Stable. GENERAL: Normal. ABDOMEN EXAM: Not tender, not distended. GENITALIA EXAM: No blood was found in the vaginal cavity. Cervix was closed. ASSESSMENT AND PLAN: A 26-year-old with increased beta hCG and suspected ectopic , was con sented for D and C and suction, and possible laparoscopic removal of ectopic , possible sa lpingectomy, possible laparotomy, and removal of IUD. The risks and benefits of the procedure were discussed with the patient. The patient understood the concept and signed the consent. Dictated By: KARIN RAM/HENRY Conf#: [id number] DID#: [id number]
[2016-10-23] MEDS ORDERED: BARIUM SULF 2% 450 ML BTL (BERRY SMOOTHIE) PO ONE (14:00)
--- NOTE | 2016-10-23 14:01 | QN ---
Documentation Comment Patient seen at the bed side. The performed procedures explained in details with the patient and her family. patient's questions answered Case D/w Radiology attending and An abdominal and pelvic CT will be done. The case were discussed and signed out to ,Laborist attending, last night and today to ,Laborist attending KARIN STEPHENSON M.D. Oct 23, 2016 14:00
[2016-10-23 17:53] LABS: ALBUMIN 3.3 g/dl (3.3-4.9)
[2016-10-23 17:54] LABS: POTASSIUM 3.6 mmol/L (3.5-5.1)
[2016-10-23 17:56] LABS: ALBUMIN/GLOBULIN RATIO 1.17; BILIRUBIN,INDIRECT 0.2 mg/dl (0-1.1); BILIRUBIN,TOTAL 0.2 mg/dl (0.2-1.3); CREATININE 0.62 mg/dl (0.44-1.00); TOTAL PROTEIN 6.1 g/dl (6.1-8.1)
[2016-10-23 17:57] LABS: CALCIUM 8.2 mg/dl (8.4-10.2)
[2016-10-23] MEDS ORDERED: IOHEXOL 300MG/ML 150 ML BTL ONE (18:31)
[2016-10-23] MEDS ORDERED: SOD CHLORIDE 0.9% 100 ML ONE (18:31)
[2016-10-23] MEDS ORDERED: LACTATED RINGER'S 1,000 ML IV SCH (19:29)
[2016-10-23] MEDS ORDERED: IBUPROFEN 600 MG TAB PO SCH (19:30)
--- NOTE | 2016-10-23 19:30 | RADRPT ---
PROCEDURE: CT Abdomen and Pelvis with contrast. CLINICAL INDICATION: Pelvic pain. TECHNIQUE: CT scan of the abdomen and pelvis with contrast was performed on a multi-detector high- resolution CT scanner. The patient was scanned following the uncomplicated intravenous administrati on of 100 cc of Omnipaque 300. Coronal and sagittal reformatted images were obtained from the axial source images. One or more of the following dose reduction techniques were used: Automated exposur e control, adjustment of the mA and/or kV according to patient size, use of iterative reconstructio n technique. Images were reviewed on a high-resolution PACS workstation. The total exam CTDI equals 7.25 mGy and the total exam DLP equals 395.07 mGy-cm. COMPARISON: Correlation with pelvic ultrasound from 10/22/2016. FINDINGS: CT abdomen: The lung bases are clear. The heart size is normal, without pericardial thickening or effusion. Th e liver is normal in size and density without focal mass or intrahepatic biliary dilatation. The sp maribel is normal in size and homogeneous in density. The stomach is partially collapsed, but is gross ly unremarkable. The pancreas as visualized is normal. The gallbladder is unremarkable. The bilia ry tree is unremarkable without evidence for biliary dilatation. The adrenal glands are symmetric a nd normal. The kidneys are unremarkable. No renal calculus or obstructive uropathy or mass lesion is seen. The aorta is of normal caliber. There is no retroperitoneal lymphadenopathy. The taryn hepatis re gion is clear. The small bowel and mesentery, as visualized, are unremarkable. Postsurgical changes including subcutaneous emphysema are noted in the anterior abdominal wall at the level of the umbil icus and right mid abdomen, likely from laparoscopic surgery. CT pelvis: A 2.2 cm linear hypodensity extending from the right uterine horn mucosal surface to the serosal maria r face is concerning for perforation of the uterus through the myometrium (image 25, series 601). Anot her 1.5 cm linear hypodensity is seen extending posteriorly from the mucosal surface in the mid to l ower right uterine body through the posterior myometrium (image 59, series 602 and image 127 of seri es 3). This hypodensity is not definitely seen extending to the serosal surface. A 3.9 cm curvilin ear metallic density is seen along the posterior serosal surface at the lower uterine segment consis tent with retained segment of intrauterine device (image 129, series 3). Is unclear if this is super ficial or deep to the uterine serosa. There is a small to moderate amount of pelvic fluid with malcom tocrit level, consistent with hemoperitoneum. A small amount of pneumoperitoneum is seen non depend ently in the perihepatic region and left anterior abdomen. The small bowel loops situated within the pelvis are unremarkable. The pelvic sidewalls and inguina l regions are clear. The sigmoid colon and rectum are unremarkable. No mass or lymphadenopathy is seen. The bladder is normal. The surrounding osseous structures are unremarkable. No osteolytic o r osteoblastic lesion is detected. IMPRESSION: 1. Findings concerning for uterine perforation at the right uterine horn extending from the endomet rium to serosal surface as described above and pictured below. A second linear hypodensity is seen i n the posterior right paramidline mid to lower uterus and extends from the mucosal surface to the mi d myometrium, concerning for incomplete perforation. 2. Retained fragment of intrauterine device seen along the posterior serosal surface of the lower u terine segment (pictured below). 3. Hemoperitoneum, likely related to uterine perforation. 4. Pneumoperitoneum, likely postsurgical. RPTAT: JJ .Beck Howard MD, Date Time Electronically viewed and signed by .Beck Howard MD, on 10/23/2016 19:29 .A/
--- NOTE | 2016-10-23 23:17 | PD.PPDC ---
SCRATCH FINISHER Discharge Instruction Condition Patient Condition: Good Diet Diet: Resume Regular Diet Activity/Restrictions Activity: Bedrest May be up to bathroom May be up for meals May Shower Restrictions: No Exercising No Lifting No Driving No Sexual Activity Nothing in the Vagina No [place] No Tampons, douche Wound/Drain Care Instructions Wound/Drain Care Instructions: Wash with soap and water Keep clean and dry Follow-up Follow-up with Physician: 2, Week/Weeks Return to clinic for HAND TUFTER Instructions: Fever greater than 101 Chills Worsening abdominal pain Excessive Vaginal Bleeding Surgical Instructions: Incisional Drainage Incisional Redness NANI FARRIS MD Oct 23, 2016 23:17
[2016-10-23 23:50] VITALS: BP 111/56; PULSE 80; RESP 20
[2016-10-24] MEDS: IBUPROFEN 800 MG TAB PO SCH
--- NOTE | 2016-10-24 00:32 | DS ---
Date/Time of Note Date/Time of Note DATE: 10/24/16 TIME: 00:29 Discharge Summary Admission/Discharge Info Admit Date/Time Oct 22, 2016 at 17:06 Discharge Date/Time Oct 23, 2016 at 23:20 Final Diagnosis Embedded IUD crossbar, from malplaced IUD. Bilateral hydrosalpinx. Pelvic adhesions. Probable IUP, now aborted. Patient Condition: Fair Procedures Removal of portion of malplaced IUD. Dilitation and curretage. Diagnostic laparoscopy. Hx of Present Illness Pt was in ER on 10/21 with what was presumed to be an IUP and an IUD in utero. When the laborist, Dr Dawson tried to remove the IUD the IUD string came off only and she could not easily find the rest of the IUD. As this was an undesired , the patient was scheduled for a D and C to remove the and primarily to find the rest of the IUD. It was not able to be done that day so the patient returned on 10/22 for the procedure. A different laborist was seal extrusion operator, Dr Carvalho, who took her to the OR to remove the IUD and also for a more thorough evaluation of the location of the . The pt had adnexal masses and only a small sac in the uterus so there was a question about whether or not it was an ectopic as well. Only the stem of the iud was able to be removed as the rest of the IUD was imbedded in the lower posterior myometrium. The uterus underwent a curretage. and uterine contents sent to the lab. On LSC the patient was found to have pelvic adhesions and b/l hydrosalpinx. The hydrosalpinges were "milked", per the surgeon and whatever was removed was also sent to pathology. Hospital Course Pt was doing well on her 1st post-operative day and was deemed ready for D/C. Was given a prescription for Percocet and Motrin 800 mg for home. Home Meds Active Scripts Doxycycline Hyclate* (Doxycycline Hyclate*) 100 Mg Tablet., 100 MG PO BID for 5 Days, #10 TAB Prov:MINDY WALL MD 10/20/16 Follow-up Plan Pt to have incisions checked in 2 weeks with the clinic that placed her IUD. Either I or Dr Carvalho will call the patient next week with the final pathology results so she will know exactly where the was. Reviewed with the patient and her spouse that the cross bar of the IUD is imbedded in the lower posterior wall of the uterus. It is possible that it can migrate but it probably won't. If she has another baby the portion of the IUD remaining would not contact the baby and its prescence should not be a contraindication to having another baby. For future control, I strongly advise against another IUD and would recommend either a barrier method or a hormonal method. Reviewed all types and pt is leaning towards an implant. Pending Labs Laboratory Tests Test 10/23/16 11:20 10/23/16 14:30 10/23/16 15:45 Basophils # 0.010^3/ul (0.0-0.1) Basophils % 0.2% (0.0-2.0) Blood Morphology Comment Eosinophils # 0.010^3/ul (0.0-0.5) Eosinophils % 0.4% (0.0-7.0) Hematocrit 32.6% (37.0-47.0) Hemoglobin 11.3g/dl (12.0-16.0) Lymphocytes # 2.010^3/ul (0.8-2.9) Lymphocytes % 26.1% (15.0-51.0) Mean Corpuscular Hemoglobin 30.1pg (29.0-33.0) Mean Corpuscular Hemoglobin Concent 34.6g/dl (32.0-37.0) Mean Corpuscular Volume 87.0fl (82.0-101.0) Mean Platelet Volume 10.6fl (7.4-10.4) Monocytes # 0.610^3/ul (0.3-0.9) Monocytes % 8.3% (0.0-11.0) Neutrophils # 5.010^3/ul (1.6-7.5) Neutrophils % 65.0% (39.0-77.0) Nucleated Red Blood Cells # 0.010^3/ul (0.0-0.0) Nucleated Red Blood Cells % 0.0/100WBC (0.0-0.0) Platelet Count 66701^3/UL (140-440) Red Blood Count 3.7510^6/ul (4.20-5.40) Red Cell Distribution Width 12.9% (11.5-14.5) White Blood Count 7.710^3/ul (4.8-10.8) Alanine Aminotransferase (ALT/SGPT) 22IU/L (13-69) Albumin 3.3g/dl (3.3-4.9) Albumin/Globulin Ratio 1.17 Alkaline Phosphatase 50IU/L (42-121) Anion Gap 15 (8-16) Aspartate Amino Transf (AST/SGOT) 19IU/L (15-46) Blood Urea Nitrogen 8mg/dl (7-20) Calcium Level 8.2mg/dl (8.4-10.2) Carbon Dioxide Level 25mmol/L (21-31) Chloride Level 103mmol/L (97-110) Creatinine 0.62mg/dl (0.44-1.00) Direct Bilirubin 0.00mg/dl (0.00-0.20) Globulin 2.80g/dl (1.3-3.2) Glucose Level 117mg/dl (70-220) Indirect Bilirubin 0.2mg/dl (0-1.1) Potassium Level 3.6mmol/L (3.5-5.1) Sodium Level 139mmol/L (135-144) Total Bilirubin 0.2mg/dl (0.2-1.3) Total Protein 6.1g/dl (6.1-8.1) Beta HCG, Quantitative 41150.0mIU/ml Serum HCG, Qualitative POSITIVE (NEGATIVE) NANI FARRIS MD Oct 24, 2016 00:32
== END 2016-10-23 23:59 | disposition home or self-care (01) | DRG 768 ==
LOC: E/R 10:24 → MS1 17:06 → SDS 19:07 → E/R 19:07
PROVIDERS: ADMIT Obstetrics & Gynecology; ATTEND Obstetrics & Gynecology
PROC: 0WJJ4ZZ Inspection of Pelvic Cavity, Percutaneous Endoscopic Approach (ICD-10-PCS; 2016-10-22)
PROC: 0UPD7HZ Removal of Contraceptive Device from Uterus and Cervix, Via Natural or Artificial Opening (ICD-10-PCS; 2016-10-22)
PROC: 0UJ88ZZ Inspection of Fallopian Tube, Via Natural or Artificial Opening Endoscopic (ICD-10-PCS; 2016-10-22)
PROC: 0UJD8ZZ Inspection of Uterus and Cervix, Via Natural or Artificial Opening Endoscopic (ICD-10-PCS; 2016-10-22)
PROC: 10D07Z6 Extraction of Products of Conception, Vacuum, Via Natural or Artificial Opening (ICD-10-PCS; principal; 2016-10-22 21:00)
DX: O26.31 Retained intrauterine contraceptive device in pregnancy, first trimester (principal); T83.39XA Other mechanical complication of intrauterine contraceptive device, initial encounter; Z3A.01 Less than 8 weeks gestation of pregnancy; O23.521 Salpingo-oophoritis in pregnancy, first trimester
CPT/HCPCS: 74177; 76801; 76817; 80048; 80053; 81003; 84702; 84703; 85025; 85610; 85730; 88300; 88305; J0330; J0690; J1170; J2175; J2405; J2710; J2765; J7120; Q9967